=== PATIENT | female | born 1970 | race Caucasian/White ===

== ENCOUNTER 2022-08-28 03:18 | Emergency (ER) | payer OTHER ==
[2022-08-28 03:46] VITALS: BP 136/93; PULSE 92; RESP 18; TEMP 99.3; BMI 42.4
== END 2022-08-28 04:22 | disposition home or self-care (01) ==
LOC: FER 03:18
DX: S30.0XXA Contusion of lower back and pelvis, initial encounter (principal); S60.212A Contusion of left wrist, initial encounter; Y04.8XXA Assault by other bodily force, initial encounter
CPT/HCPCS: 72170-TC-FY; 73110-TC-LT-FY; 73130-TC-LT-FY; 99284-25